=== PATIENT | male | born 1980 | race African-American/Black ===

== ENCOUNTER 2021-04-03 06:06 | Day surgery (SDC) | payer OTHER ==
[~2021-04-03] VITALS: Ht 170.2 cm; Wt 88.0 kg
[2021-04-03 06:27] VITALS: BP 119/87
[2021-04-03] MEDS ORDERED: IV RINGERS,LACTATED 1000ML 1,000 ML IV SCH ×2 (07:00→09:45)
[2021-04-03] MEDS ORDERED: MIDAZOLAM HCL/PF 2 MG/2 ML VIAL. ONE (07:14)
[2021-04-03] MEDS ORDERED: fentaNYL PF VIAL 100 MCG/2 ML VIAL ONE ×2 (07:14→09:33)
[2021-04-03] MEDS ORDERED: LIDOCAINE 2% PF 5 ML VIAL. ONE ×2 (07:15)
[2021-04-03] MEDS ORDERED: ONDANSETRON PF 4 MG/2 ML VIAL. ONE (07:15)
[2021-04-03] MEDS ORDERED: DEXAMETHASONE SOD PHOS 4 MG/ML VIAL ONE (07:15)
[2021-04-03] MEDS ORDERED: PROPOFOL 10 MG/ML (20ML) VIAL. IV ONE (07:15)
[2021-04-03] MEDS ORDERED: BUPIVACAINE-EPI 0.5%-1:200000 MPF 30 ML VIAL. ONE (07:22)
[2021-04-03] MEDS ORDERED: SUCCINYLCHOLINE 200 MG/10 ML VIAL. ONE (07:22)
[2021-04-03] MEDS ORDERED: KETAMINE HCL IN NACL, ISO-OSM 50 MG/5 ML SYRINGE ONE (08:08)
--- NOTE | 2021-04-03 09:27 | PDOC4 ---
Operative Note Operative Note Operative Note: Preoperative Diagnosis: Left inguinal hernia Postoperative Diagnosis: Same Procedure: Left inguinal hernia repair with mesh Surgeon: Jese Torque Tester: ABBY West Anesthesia: General EBL: 20 mL Specimen: None Drains: None Complications: None Indication: The patient is a 40-year-old male who is referred with a left inguinal hernia. He was offered surgical repair. The risks of surgery were discussed which include bleeding, infection, recurrence, pain, anesthetic risk, urinary retention, potential need for additional surgery or procedure. He understands and would like to proceed. Description: The patient was taken to the operating room and placed supine in the operating table. General anesthesia was performed. The left groin was shaved prepped with ChloraPrep and draped in a standard surgical manner. An incision was made in the skin lines of the left groin with a scalpel. Cautery dissection was carried down to the external oblique. The aponeurosis was opened down to the external ring. The contents of the inguinal canal were digitally mobilized and encircled with a Romero drain. The vas deferens and other structures were identified and preserved. There was a small to moderate sized indirect hernia sac present. This was mobilized from the surrounding tissues and fully reduced. The defect was filled with a medium sized Phasix mesh plug. The plug was sutured into position with 2-0 Vicryl. The inguinal floor was then reinforced with a Prolene keyhole mesh patch. The mesh was also sutured into position with 2-0 Vicryl. A slit was made in the mesh to accommodate the cord structures. The external oblique was closed over the mesh with 2-0 Vicryl. The subcutaneous tissue was closed with 3-0 Vicryl. The skin was approximated with 4-0 Monocryl and infiltrated with half percent Marcaine with epinephrine. Steri-Strips and a sterile dressing were applied. The patient tolerated the procedure well and was sent to the recovery room in stable condition. At the end of the case all counts were correct. ALONDRA ELISE MD Apr 03, 2021 09:27
[2021-04-03] MEDS ORDERED: PROCHLORPERAZINE 10 MG/2 ML VIAL. ONE (09:33)
[2021-04-03] MEDS ORDERED: OXYC1TAB15 PO (09:34)
--- NOTE | 2021-04-03 09:38 | DISCH ---
DISCHARGE INSTRUCTIONS Condition on Discharge Condition on Discharge: Stable Activity After Discharge Activity Instructions for Disc: Other, see below (No lifting over 20 lbs X 4 weeks) Diet after Discharge Diet after Discharge: Regular Wound Incision Care Wound/Incision Care: Other, see below (keep dressing clean and dry X 72 hours, may then remove and shower) Follow-Up Follow up with: Dr Elise in 2 weeks in office, call for appointment [phone] ALONDRA ELISE MD Apr 03, 2021 09:38
[2021-04-03] MEDS: fentaNYL PF VIAL 100 MCG/2 ML VIAL IVP PRN ×2 (09:42→10:04)
[2021-04-03] MEDS ORDERED: fentaNYL PF VIAL 100 MCG/2 ML VIAL IVP PRN (09:45)
[2021-04-03] MEDS ORDERED: PROCHLORPERAZINE 10 MG/2 ML VIAL. IVP PRN (09:45)
[2021-04-03] MEDS ORDERED: MORPHINE SULFATE 2 MG/ML INJ. ONE (10:06)
[2021-04-03] MEDS ORDERED: oxyCODONE/APAP 5/325 1 TAB TABLET ONE (10:07)
[2021-04-03] MEDS: MORPHINE SULFATE 2 MG/ML INJ. IVP PRN ×2 (10:16→10:39)
[2021-04-03 10:22] VITALS: BP 109/72
[2021-04-03] MEDS ORDERED: oxyCODONE/APAP 5/325 1 TAB TABLET PO ONE (10:30)
[2021-04-03] MEDS ORDERED: HYDROmorphone 2 MG/ML VIAL ONE (10:57)
[2021-04-03] MEDS: HYDROmorphone 2 MG/ML VIAL IVP PRN ×3 (11:01→11:21)
== END 2021-04-03 11:25 | disposition home or self-care (01) ==
LOC: SURG 06:06
PROVIDERS: ATTEND Surgery
DX: K40.90 Unilateral inguinal hernia, without obstruction or gangrene, not specified as recurrent (principal); Z79.899 Other long term (current) drug therapy; Z98.890 Other specified postprocedural states
CPT/HCPCS: 49505; J0330; J0690; J0780; J1100; J1170; J2250; J2270; J2405; J2704; J3010; A4364; A4452; A4930; A6402; C1781